=== PATIENT | male | born 1985 | race Caucasian/White ===

== ENCOUNTER → 2016-10-13 | Outpatient (CLI) | payer OTHER ==
--- NOTE | 2016-10-15 10:30 | XCELERA REPORT ---
[address] [address] Lower Extremity Arterial Evaluation Name: IVÁN BLACKMON Age: 31 yrs Gender: Male : 1985 Patient Status: Outpatient Patient Location: Study Date: 10/13/2016 01:29 PM Procedure: A color flow and duplex scan of the lower extremity arteries was performed bilaterally with velocity and waveform anaylsis. 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 0 % stenosis noted. Ankle Brachial index is 0.97. Left Side Arterial Evaluation Normal velocity and triphasic waveforms noted from the Common Femoral artery to the infrageniculate vessels. 0 % stenosis noted. Ankle Brachial index is 0.98. Interpretation Summary No hemodynamically significant lesions noted in the bilateral lower extremity arteries, on duplex imaging, at rest. : ALONDRA QUINTANA > Cristóbal Segovia
== END ==
LOC: SP 13:15
PROVIDERS: ATTEND Internal Medicine
DX: R23.0 Cyanosis (principal)
CPT/HCPCS: 93925